=== PATIENT | female | born 1970 | race Two or more races ===

== ENCOUNTER → 2017-10-06 | Outpatient (CLI) | payer BC ==
--- NOTE | 2017-10-06 17:32 | RADIOLOGY IMAGING REPORT ---
FACILITY: [facility] PATIENT NAME: Nataila Gimenez : 1970 MR: [id number] V: [id number] EXAM DATE: ORDERING PHYSICIAN: KARRI TERRY TECHNOLOGIST: Location: [facility] - [place], [place] Patient: Natalia Gimenez : 1970 Visit/Account:[id number] Date of Sevice: 10/06/2017 THYROID HISTORY: Thyroid nodule follow-up ADDITIONAL HISTORY: A large solid left thyroid nodule as well as a left isthmus nodule was biopsied in November 2015 COMPARISON: Comparison made to November 2015 ultrasound and report from a November 21, 2015 ultrasound. Th e images are not available. FINDINGS: Thyroid size: Enlarged Right lobe: 5.7 craniocaudad by 2.4 x 1.9cm Left lobe: 6.4 craniocaudad by 3.3 x 2.4 cm Thyroid nodules Right lobe: There are 2 subcentimeter nodules in the right lobe including a cystic nodule measu ring 7 mm longest dimension and a slightly hypoechoic solid nodule measuring 4 mm longest dimension. These do not warrant sampling based upon size criteria. Left lobe: There is a large solid slightly heterogenous hypervascular nodule occupying the lowe r half of the left lobe which was the lesion biopsied previously. It currently measures 4.9 x 3.9 x 2 .8 cm which is minimally changed from the previous exam when it measured 4.6 x 3.8 x 2.8 cm. Isthmus: There is a solid circumscribed homogenous nodule located at the left side of the isthm us measuring 1.7 x 1.4 x 1.2 cm slightly increased in size from the previous study when it measured 1 .5 x 1.3 x 1.0 cm Thyroid vascularity: Within normal limits. Thyroid echotexture: Homogenous and normal. IMPRESSION: Large left thyroid lobe nodule minimally changed from 2016. Left isthmus nodule slightly increased in size from 2016. Both lesions were biopsied in 2016. Correlate with pathology results. Report Dictated By: Severiano Hook MD at 10/06/2017 5:18 PM Report E-Signed By: Severiano Hook MD at 10/06/2017 5:28 PM WSN:[id number]
== END ==
LOC: US 00:52
PROVIDERS: ATTEND Physician Assistant
DX: E04.2 Nontoxic multinodular goiter (principal)
CPT/HCPCS: 76536

== ENCOUNTER → 2018-06-28 | Outpatient (CLI) | payer BC ==
--- NOTE | 2018-07-06 10:35 | RADIOLOGY IMAGING REPORT ---
FACILITY: [facility] PATIENT NAME: BEN FRANKEL : [id number] MR: [id number] V: [id number] EXAM DATE: [id number] ORDERING PHYSICIAN: KARRI TERRY TECHNOLOGIST: Linh Matias PROCEDURE:BILATERAL DIGITAL SCREENING MAMMOGRAM WITH CAD ASSISTED INTERPRETATION & 3D TOMOSYNTHESIS COMPARISON:Mammogram 06/26/17 & 06/16/16. INDICATIONS:SCREENING TISSUE: Breast tissue demonstrates scattered fibroglandular tissue densities. FINDINGS: There is no suspicious mass, calcification or architectural distortion. DIAGNOSTIC CATEGORY 1--NEGATIVE. RECOMMENDATIONS: ROUTINE YEARKT MAMMOGRAM AND CLINICAL EVALUATION. IMPRESSION: BIRADS 1: Negative. No mammographic evidence for malignancy. Dictated by: Julio Doss M.D. on 06/28/2018 at 17:25 Transcribed by: BRADLEY on 06/29/2018 at 8:13 Approved by: Julio Doss M.D. on 07/06/2018 at 10:34 [facility]
== END ==
LOC: MAMO 03:56
PROVIDERS: ATTEND Physician Assistant
DX: Z12.31 Encounter for screening mammogram for malignant neoplasm of breast (principal)
CPT/HCPCS: 77063; 77067